=== PATIENT | male | born 1995 | race Caucasian/White ===

== ENCOUNTER 2018-02-04 21:32 | Inpatient (IN) | payer BC, OTHER ==
[~2018-02-04] VITALS: Ht 177.8 cm; Wt 56.2 kg
--- NOTE | 2018-02-04 23:13 | NUR ---
Pt. was seen in the intake office. Pt. is A/O to person, place, time, and purpose. Pt.'s V/S: T: n/a, P: 100, RR: 18, O2Sat: 97%, and BP: 147/86. Pt. is intoxicated and has not begun to show s/s of withdrawal. Pt. has a steady gait. Pt. states he has no notable medically Hx besides HTN. Pt. is acceptable for admittance to the unit. Addendum: 02/04/18 at 2337 by BRIAN GRIMES RN PRE-ADMISSION NOTE
[2018-02-05] MEDS ORDERED: LORAZEPAM 2 MG/1 ML VIAL IM PRN
[2018-02-05] MEDS ORDERED: ACETAMINOPHEN 325 MG TABLET PO PRN
[2018-02-05] MEDS ORDERED: LOPERAMIDE HCL 2 MG CAPSULE PO PRN ×2
[2018-02-05] MEDS ORDERED: HYDROXYZINE PAMOATE 25 MG CAPSULE PO PRN
[2018-02-05] MEDS ORDERED: MAGNESIUM HYDROXIDE 30 ML LIQUID UDC PO PRN
[2018-02-05] MEDS ORDERED: MAG HYDROX/AL HYDROX/SIMETH 30 ML LIQUID UDC PO PRN
[2018-02-05] MEDS ORDERED: DICYCLOMINE HCL 20 MG TABLET PO PRN
[2018-02-05] MEDS ORDERED: MIRALAX 17 GM POWD.PACK PO PRN
[2018-02-05] MEDS ORDERED: THIAMINE HCL 200 MG/2 ML VIAL IM ONE
[2018-02-05] MEDS ORDERED: IBUPROFEN 400 MG TABLET PO PRN
[2018-02-05] MEDS ORDERED: CLONIDINE HCL 0.1 MG TABLET PO PRN
[2018-02-05] MEDS ORDERED: ONDANSETRON ODT 4 MG TAB.RAPDIS SL PRN
[2018-02-05] MEDS ORDERED: ONDANSETRON 4 MG/2 ML VIAL IM PRN
[2018-02-05] MEDS ORDERED: diphenhydrAMINE 50 MG CAPSULE PO PRN
--- NOTE | 2018-02-05 00:21 | NUR ---
ADMISSION NOTE Pt. is a 22 y/o male being admitted for medically supervised withdrawal from Alcohol and Benzodiazepines. Pt. is A/O to person, place, time, and purpose. Pt. is currently intoxicated and not experiencing withdrawal. Pt. appears unkempt and presents w/ flat affect and depressed withdrawn mood. Pt. states that withdrawal symptoms usually include body aches, N & V, diarrhea, sweats, and chills. Pt. stated that he also had insomnia the last time he went through withdrawals. Pt. denies any Hx of withdrawal induced seizures. Pt. states current substance use as follows: 1. ETOH: 750ml (Vodka) daily for the past yr. Pt.s last use was on 02/04/18. Pt. first began using 10 yrs ago. 2. Klonipin: 0.2mg daily for the past 2 yrs. Pt.s last use was on 02/04/18. Pt. first began using 6 yrs ago. 3. Xanax: 4mg daily for the past 2 yrs. Pt.s last use was on 02/04/18. Pt. first began using 6 yrs. Ago. 4. Methamphetamines: 1/8 daily for the past yr. Pt.s last use was on 02/04/18. Pt. first began using 4 yrs ago. Pt. states he is seeking treatment today because he feels like he is dying. Pt. states he has been through detox/rehab 11 times. The last time was at [facility] in February of 2016. Pt. claims this time will be different because I finished my education and have a good job waiting for me. Pt. states they are more motivated. V/S are as follows: T: 97.7, HR: 89, RR: 18, O2Sat: 97%, and BP: 132/86. Pt.s respirations are unlabored and even. Pulse is strong and regular. Pt.s skin is intact. Pt. follows a regular diet while at home. Pt. has no known allergies. Pt. is 510 and 126 lbs. Pt. also smokes 20 cigarettes per day. Pt. has a PCP, but does not recall their name. Pt. does have a h/o HTN. Pt. has never been admitted to a hospital except for rhynoplasty in 2016. Pt. has not been seen by MD yet. Began educating the pt. on smoking cessation. Explained to the pt. the importance of attending group and individual therapy sessions. Urine was collected. Bed in lowest position and locked w/ the side rails up x 2. Call light within reach. Pt. will continue to be monitored and needs met.
[2018-02-05 00:23] VITALS: BP 132/86
[2018-02-05] MEDS ORDERED: LORAZEPAM 1 MG TABLET PO ONE (00:30)
[2018-02-05] MEDS ORDERED: QUET300T2 PO (00:32)
--- NOTE | 2018-02-05 00:41 | NUR ---
PRN ADMINISTRATION Pt. given Seroquel 100mg and Ativan 2mg for insomnia and increased anxiety. V/S stable. Will reassess pt. in 1 hr.
[2018-02-05] MEDS ORDERED: QUETIAPINE FUMARATE 100 MG TABLET PO ONE (00:45)
--- NOTE | 2018-02-05 01:41 | NUR ---
PRN REASSESSMENT Pt. is in bed w/ his eyes closed. Pt.'s breathing is unlabored and even.
[2018-02-05 01:47] LABS: *AMPHETAMINE, URINE POSITIVE (NEGATIVE); *BARBITURATE, URINE NEGATIVE (NEGATIVE); *CANNABINOID, URINE POSITIVE (NEGATIVE); *COCCAINE, URINE NEGATIVE (NEGATIVE); *OPIATE, URINE NEGATIVE (NEGATIVE); *PHENCYCLIDINE SCREEN,URINE NEGATIVE (NEGATIVE)
[2018-02-05 02:43] LABS: BASOPHILS % (AUTO) 0.5 % (0.0-2.0); EOSINOPHILS # (AUTO) 0.1 K/uL (0.0-0.7); EOSINOPHILS % (AUTO) 1.7 % (0.0-7.0); HEMATOCRIT 51.4 % (36.7-47.1); HEMOGLOBIN 18.1 g/dL (12.5-16.3); LYMPHOCYTES # (AUTO) 2.4 K/uL (20.0-40.0); LYMPHOCYTES % (AUTO) 46.8 % (20.5-51.5); MEAN CORPUSCULAR HEMOGLOBIN 32.3 uug (23.8-33.4); MEAN CORPUSCULAR HGB CONC 35 g/dL (32.5-36.3); MEAN CORPUSCULAR VOLUME 91.7 fL (73.0-96.2); MONOCYTES # (AUTO) 0.4 K/uL (2.0-10.0); MONOCYTES % (AUTO) 8.4 % (0.0-11.0); NEUTROPHILS # (AUTO) 2.2 K/uL (1.8-8.9); NEUTROPHILS % (AUTO) 42.6 % (38.5-71.5); PLATELET COUNT (AUTO) 208 K/uL (152-348); WHITE BLOOD COUNT (AUTO) 5.1 K/uL (3.6-10.2)
[2018-02-05 02:56] LABS: ETHANOL 208 MG/DL (0-0)
[2018-02-05 03:02] LABS: ALANINE AMINOTRANSFERASE 55 U/L (16-63); ALKALINE PHOSPHATASE 90 U/L (50-136); AMYLASE 38 U/L (25-115); ASPARTATE AMINOTRANSFERASE 36 U/L (15-37); BILIRUBIN,TOTAL 1.5 mg/dL (0.2-1.0); CARBON DIOXIDE 24 mmol/L (21-32); CHLORIDE 106 mmol/L (98-107); CREATININE 0.7 mg/dL (0.6-1.3); GLUCOSE 92 mg/dL (74-106); LIPASE 84 U/L (73-393); MAGNESIUM 2.2 mg/dL (1.8-2.4); POTASSIUM 3.8 mmol/L (3.5-5.1); TOTAL PROTEIN, SERUM 7.7 g/dL (6.4-8.2); UREA NITROGEN, BLOOD 5 mg/dL (7-18)
--- NOTE | 2018-02-05 04:12 | NUR ---
CIWA DEFERRED / V/S REFUSED Pt. is in bed w/ his eyes closed. Pt.'s breathing is unlabored and even.
[2018-02-05] MEDS ORDERED: DEXT5TAB15 PO (06:32)
[2018-02-05] MEDS ORDERED: SERT25TA PO (06:32)
[2018-02-05] MEDS ORDERED: LISD10TA PO (06:32)
[2018-02-05] MEDS ORDERED: METO25TA6 PO (06:32)
--- NOTE | 2018-02-05 07:17 | NUR ---
END OF SHIFT NOTE Endorsed pt. to oncoming nurse. Pt. is a 22 y/o male A/O to person, place, time, and purpose. Pt was admitted for medically supervised withdrawal from ETOH and Benzodiazepines. Pt. was intoxicated upon admission and was not currently experiencing withdrawal symptoms. Pt. appeared unkempt and had a flat affect and depressed mood. Pt. denies S/I and H/I. PRN Seroquel 100mg and Ativan 2 mg @ 0041 for increased anxiety and insomnia (CIWA 6), noted effective. Pt.s fluid intake was 500ml. Pt. voided 1 time and slept for 4hrs. Last CIWA 6 @ 0030. Bed in lowest position and side rails up x 2. Call light is within reach.
[2018-02-05 08:00] VITALS: BP 96/65
--- NOTE | 2018-02-05 08:20 | NUR ---
START OF SHIFT: PT IS LAYING IN BED WITH EYES CLOSED RESPIRATIONS EVEN AND UNLABORED. HE STATES" PLEASE LET ME SLEEP". BED LOCKED AND LOW. CALL ODONNELL IN REACH. WILL CONTINUE TO MONITOR.
[2018-02-05] MEDS: MULTIVITAMINS,THERAPEUTIC TABLET PO SCH (09:00)
[2018-02-05] MEDS: FOLIC ACID 1 MG TABLET PO SCH (09:00)
[2018-02-05] MEDS: THIAMINE HCL 100 MG TABLET PO SCH (09:00)
[2018-02-05] MEDS ORDERED: TUBERCULIN,PURIF.PROT.DERIV. 5 TU/0.1 ML TEST ID ONE ×2 (09:00→15:00)
--- NOTE | 2018-02-05 10:08 | NUR ---
CIWA DEFERRED. MEDS HELD. PT IS ASLEEP AND NOT WILLING TO WAKE UP FOR MEDS. MADE AWARE. WILL CONTINUE TO MONITOR.
[2018-02-05] MEDS ORDERED: Medication Not On Formulary EA (Sertraline Hcl (Zoloft) 25 MG) PO SCH (10:15)
[2018-02-05] MEDS: SERTRALINE HCL 50 MG TABLET PO SCH (10:28)
[2018-02-05] MEDS ORDERED: LORAZEPAM 1 MG TABLET PO PRN ×4 (11:30)
[2018-02-05 12:00] VITALS: BP 118/67
--- NOTE | 2018-02-05 12:00 | NUR ---
KRISTIAN 2.PT STATES HE WAS NOT DRINKING MUCH ORIGINALLY REPORTED AND ONLY DRANK ETOH FOR 2 DAYS. HE STATES HE HAS NOT TAKEN XANAX IN A WEEK. 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 REFERRED TO CASE MANAGEMENT. HE REFUSED ATIVAN AND STATES" I JUST WANT TO SLEEP IT OFF WITH NO MEDS". EDUCATED PT ON POTENTIAL CONSEQUENCES OF REFUSING DETOX MEDS.WILL CONTINUE TO MONITOR AND OFFER SUPPORT.
[2018-02-05] MEDS: LORAZEPAM 1 MG TABLET PO SCH ×3 (13:00→21:11)
[2018-02-05 16:00] VITALS: BP 112/64
--- NOTE | 2018-02-05 18:35 | NUR ---
END OF SHIFT: PT SLEPT MOST OF SHIFT AND REFUSED ALL MEDS INCLUDING PPD. LAST CIWA 6. HE REPORTS FATIGUE AND STATED HE WANTS TO "SLEEP IT OFF" MD MADE AWARE.ENCOURAGED INCREASED FLUIDS. WILL PASS SHIFT REPORT TO ONCOMING NURSE.
[2018-02-05 20:00] VITALS: BP 134/84
--- NOTE | 2018-02-05 20:00 | NUR ---
Start of Shift Note Received a 22 y/o male px, admitted for medically supervised withdrawal from ETOH, Benzos and methamphetamine. Px was placed on 5 day Ativan taper to start today, 02/05/2018. Report from AM shift nurse, px refused Ativan medication. Last reported CIWA 6 by AM shift nurse. During the rounds at 2000, ana is awake on bed in fowlers position. Px appears anxious with good eye contact. Few drinks noted on top of his bed side table. Px stated "My anxiety is 6/10. 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 I should not be on a taper, I was off from Benzos long time. It is only ETOH." Ativan taper and detox were explained to the px. Px agrees to take his Ativan dose tonight. Bed on lowest position, side rails up 2x, and call light within reach. We'll continue to monitor.
--- NOTE | 2018-02-05 20:15 | NUR ---
Meds refused Px refused to take Gabapentin 300 mg/cap, 1 cap PO and Seroquel 100 mg/tab, 3 tabs PO as standing order at 2100. Px stated "I don't need those medications. I'll just take Ativan." We'll continue to monitor.
[2018-02-05] MEDS ORDERED: Medication Not On Formulary EA (Quetiapine Fumarate (Seroquel) 300 MG) PO SCH (21:00)
[2018-02-05] MEDS: GABAPENTIN 300 MG CAPSULE PO SCH (21:00)
[2018-02-05] MEDS ORDERED: QUETIAPINE FUMARATE 100 MG TABLET PO SCH (21:00)
[2018-02-06] VITALS: BP 128/78
[2018-02-06 04:00] VITALS: BP 121/77
--- NOTE | 2018-02-06 04:00 | NUR ---
CIWA deferred CIWA deferred at 0000 and 0400 due to the px is asleep, to asses if the px is awake per doctor's order. We'll continue to monitor.
--- NOTE | 2018-02-06 07:10 | NUR ---
End of Shift Note During the shift, px refused to take Gabapentin 300 mg PO and Seroquel 900 mg PO as standing order at 2100. Pxs' oral intake is 1 L, voided 2x, with no BM. Px slept for 7.5 hours. At 0630, px is asleep on bed in fowlers position. Last CIWA is 6. Bed on lowest position, side rails up 2x, and call light within reach. We'll continue to monitor. Px endorsed to AM shift nurse.
[2018-02-06 07:24] LABS: BASOPHILS % (AUTO) 0.4 % (0.0-2.0); EOSINOPHILS # (AUTO) 0.2 K/uL (0.0-0.7); HEMOGLOBIN 17.3 g/dL (12.5-16.3); LYMPHOCYTES # (AUTO) 1.9 K/uL (20.0-40.0); MEAN CORPUSCULAR HEMOGLOBIN 32.6 uug (23.8-33.4); MONOCYTES # (AUTO) 0.7 K/uL (2.0-10.0)
[2018-02-06 07:34] LABS: EOSINOPHILS % (AUTO) 3.4 % (0.0-7.0); HEMATOCRIT 49.1 % (36.7-47.1); LYMPHOCYTES % (AUTO) 28.9 % (20.5-51.5); MEAN CORPUSCULAR HGB CONC 35 g/dL (32.5-36.3); MEAN CORPUSCULAR VOLUME 92.7 fL (73.0-96.2); NEUTROPHILS # (AUTO) 3.8 K/uL (1.8-8.9); NEUTROPHILS % (AUTO) 57.3 % (38.5-71.5); PLATELET COUNT (AUTO) 189 K/uL (152-348)
[2018-02-06 07:35] LABS: WHITE BLOOD COUNT (AUTO) 6.6 K/uL (3.6-10.2)
[2018-02-06 08:00] VITALS: BP 111/65
[2018-02-06] MEDS: MULTIVITAMINS,THERAPEUTIC TABLET PO SCH (08:49)
[2018-02-06] MEDS: FOLIC ACID 1 MG TABLET PO SCH (08:50)
[2018-02-06] MEDS: LORAZEPAM 1 MG TABLET PO SCH ×2 (08:51→14:33)
[2018-02-06] MEDS: SERTRALINE HCL 50 MG TABLET PO SCH (08:51)
[2018-02-06] MEDS: GABAPENTIN 300 MG CAPSULE PO SCH ×2 (08:51→14:34)
[2018-02-06] MEDS: THIAMINE HCL 100 MG TABLET PO SCH (08:51)
[2018-02-06] MEDS ORDERED: METOPROLOL TARTRATE 25 MG TABLET PO SCH (09:00)
--- NOTE | 2018-02-06 09:14 | NUR ---
START OF SHIFT: RECEIVED PT A/O X 4. HE PRESENTS WITH DEPRESSED MOOD AND BLUNTED AFFECT. HE DENIES S/I AND H/1. PT REPORTS SOME ANXIETY AND DEPRESSION. HIS FACE IS FLUSHED. CIWA 6. ENCOURAGED INCREASED FLUIDS TO ASSIST IN FACILITATING DETOX PROCESS. ENCOURAGED GROUP ATTENDANCE TO IMPROVE COPING SKILLS AND PREVENT RELAPSE. PT IS PREOCCUPIED WITH DISCHARGE DATE AND STARTING A NEW JOB. ENCOURAGE PT TO STAY AND COMPLETE DETOX. WILL CONTINUE TO MONITOR AND OFFER SUPPORT.
[2018-02-06 12:00] VITALS: BP 109/67
[2018-02-06 14:06] LABS: HEPATITIS B SURFACE AG Negative (Negative)
--- NOTE | 2018-02-06 15:15 | NUR ---
PT REFUSED 1500 MEDS AND STATES HE WANTS TO LEAVE AMA. HE STATES HE HAS A VERY IMPORTANT JOB TO START TOMORROW AND DOES NOT WANT TO MISS WORK. ENCOURAGED PT TO STAY AND COMPLETE DETOX. MULTIDISCIPLINARY TEAM NOTIFIED AND INTERVENED. WILL CONTINUE TO PROVIDE SUPPORT.
[2018-02-06] MEDS ORDERED: LORAZEPAM 1 MG TABLET PO PRN ×2 (15:45)
--- NOTE | 2018-02-06 17:06 | NUR ---
DISCHARGE AMA: PT IS A/O X 4. HE DENIES S/I AND H/I. MULTIDISCIPLINARY TEAM INTERVENED AND PT WOULD NOT AGREE TO STAY AND COMPLETE DETOX. BELONGINGS RETURNED. EDUCATED PT ON POTENTIAL CONSEQUENCES OF LEAVING AMA. HE EXPRESSED VERBAL UNDERSTANDING OF EDUCATION . MANAGER ASSURANCE ESCORTED PT TO [facility] WHERE HE LEFT FACILITY AT 1647.
[2018-02-07] MEDS ORDERED: LORAZEPAM 1 MG TABLET PO SCH (09:00)
[2018-02-08] MEDS ORDERED: LORAZEPAM 1 MG TABLET PO SCH (09:00)
[2018-02-09] MEDS ORDERED: LORAZEPAM 1 MG TABLET PO SCH (09:00)
== END 2018-02-06 16:47 | disposition left against medical advice (07) | DRG 894 ==
LOC: SRC 21:47
PROVIDERS: ADMIT Internal Medicine; ATTEND Internal Medicine
PROC: HZ2ZZZZ Detoxification Services for Substance Abuse Treatment (ICD-10-PCS; principal; 2018-02-04)
PROC: HZ51ZZZ Individual Psychotherapy for Substance Abuse Treatment, Behavioral (ICD-10-PCS; 2018-02-06)
DX: F10.230 Alcohol dependence with withdrawal, uncomplicated (principal); D47.3 Essential (hemorrhagic) thrombocythemia; F13.230 Sedative, hypnotic or anxiolytic dependence with withdrawal, uncomplicated; Y90.9 Presence of alcohol in blood, level not specified; I10 Essential (primary) hypertension; F17.210 Nicotine dependence, cigarettes, uncomplicated; F12.90 Cannabis use, unspecified, uncomplicated; F15.23 Other stimulant dependence with withdrawal; F90.9 Attention-deficit hyperactivity disorder, unspecified type; Z79.899 Other long term (current) drug therapy; F39 Unspecified mood [affective] disorder
CPT/HCPCS: 36415; 80307; 80324; 80349; 83690; 83735; 84443; 85025; 86592; 86705; 86803; 87340; 87806; G0480

== ENCOUNTER 2024-01-02 13:48 | Emergency (ER) | payer BC, OTHER ==
[~2024-01-02] VITALS: Ht 177.8 cm; Wt 61.2 kg
[~2024-01-02 13:48] MED LIST: METO25TA6 PO; QUET300T2 PO; SERT25TA PO
[2024-01-02] MEDS ORDERED: HYDR-3972 PO (16:26)
[2024-01-02] MEDS ORDERED: CLIN300C3 PO (16:26)
[2024-01-02 16:33] VITALS: BP 114/74; O2SAT 99
== END 2024-01-02 16:44 | disposition home or self-care (01) ==
LOC: ER 14:11
DX: K61.0 Anal abscess (principal); Z79.899 Other long term (current) drug therapy
CPT/HCPCS: 72192; A4606; A4663

== ENCOUNTER 2024-01-07 15:16 | Emergency (ER) | payer SELFPAY ==
[~2024-01-07] VITALS: Ht 177.8 cm; Wt 61.2 kg
[~2024-01-07 15:16] MED LIST changes: +CLIN300C3 PO; +HYDR-3972 PO
[2024-01-07] MEDS ORDERED: LIDOCAINE HCL 1% 20 ML VIAL ONE (15:48)
[2024-01-07] MEDS ORDERED: TDAP DIPH,PERTUSS,TET VAC/PF 0.5 ML DISP.SYRIN IM ONE (15:49)
[2024-01-07] MEDS: LIDOCAINE HCL 1% 20 ML VIAL IJ ONE (15:52)
[2024-01-07] MEDS: TDAP DIPH,PERTUSS,TET VAC/PF 0.5 ML DISP.SYRIN IM ONE (15:56)
[2024-01-07] MEDS ORDERED: NEOMY/BACITRA/POLYMYXIN B OINT UD PACKET TP ONE (16:51)
[2024-01-07] MEDS ORDERED: CEphaleXIN 500 MG CAPSULE ONE (16:51)
[2024-01-07] MEDS: CEphaleXIN 500 MG CAPSULE PO ONE (16:53)
[2024-01-07] MEDS: NEOMY/BACITRA/POLYMYXIN B OINT UD PACKET TP ONE (16:53)
[2024-01-07 17:10] VITALS: BP 116/87; TEMP 98.3; O2SAT 98
== END 2024-01-07 17:12 | disposition home or self-care (01) ==
LOC: ER 15:17
DX: S91.332A Puncture wound without foreign body, left foot, initial encounter (principal); Z79.899 Other long term (current) drug therapy; X58.XXXA Exposure to other specified factors, initial encounter; Y93.89 Activity, other specified; Y92.89 Other specified places as the place of occurrence of the external cause; Y99.8 Other external cause status
CPT/HCPCS: 99284; 73620; 90715; 90471; J3490; A4606; A4663